=== PATIENT | female | born 1955 | race Caucasian/White ===

== ENCOUNTER → 2018-03-17 10:35 | Outpatient (CLI) | payer OTHER, SELFPAY ==
--- NOTE | 2018-03-17 | DI.RAD.S_ITS ---
PROCEDURE: XR KNEE LT 3V INDICATIONS: LEFT KNEE PAIN TECHNIQUE: 3 views of the knee were acquired. COMPARISON: None. FINDINGS: Bones: No fractures or dislocations. No suspicious bony lesions. Mild narrowing of the medial femoral tibial and tricompartmental periarticular osteophyte formation Soft tissues: No joint effusion. No suspicious soft tissue calcifications. IMPRESSION: Mild knee joint degeneration, most notably involving the medial femorotibial joint. Dictated by: Farooq Mann [facility] Interpreted: Maurizio Sifuentes MD on 03/17/2018 at 11:23 Approved by: Maurizio Sifuentes M.D. on 03/17/2018 at 12:22
== END ==
PROVIDERS: Family Provider Family Medicine; PCP Family Medicine; Visit Provider Chiropractor
DX: M17.12 Unilateral primary osteoarthritis, left knee (principal)
CPT/HCPCS: 73562

== ENCOUNTER → 2018-05-01 12:46 | Outpatient (CLI) | payer OTHER, SELFPAY ==
--- NOTE | 2018-05-01 | DI.MG.S_ITS ---
BILATERAL DIGITAL SCREENING MAMMOGRAM 3D/2D WITH CAD: 05/01/2018 CLINICAL: Routine screening. Comparison is made to exams dated: 02/17/2016 mammogram, 07/17/2014 mammogram, and 09/11/2012 mammogram - [facility]. The tissue of both breasts is heterogeneously dense. This may lower the sensitivity of mammography. Current study was also evaluated with a Computer Aided Detection (CAD) system. No significant masses, calcifications, or other findings are seen in either breast. There has been no significant interval change. IMPRESSION: NEGATIVE There is no mammographic evidence of malignancy. A 1 year screening mammogram is recommended. This exam was interpreted at Station ID: [id number]. NOTE: For mammograms, a report in lay terms will be sent to the patient. Approximately 15% of breast malignancies will not be visualized mammographically. In the management of a palpable breast mass, a negative mammogram must not discourage biopsy of a clinically suspicious lesion. Electronically Signed By: Erick elizondo/gabi:05/01/2018 17:31:07 copy to: Lc Renae letter sent: Normal Exam ACR BI-RADS Category 1: Negative 3341F
== END ==
PROVIDERS: PCP Family Medicine; Visit Provider Family Medicine
DX: Z12.31 Encounter for screening mammogram for malignant neoplasm of breast (principal)
CPT/HCPCS: 77063; 77067

== ENCOUNTER 2019-12-27 23:36 | Emergency (ER) | payer OTHER, MEDICARE, SELFPAY ==
--- NOTE | 2019-12-27 23:45 | ED_ITS ---
HPI - General Adult General Chief complaint: Chest Pain Stated complaint: heart event Time Seen by Provider: 12/27/19 23:38 Source: patient Mode of arrival: Ambulatory Limitations: no limitations History of Present Illness HPI narrative: Patient is a 64-year-old female with no prior cardiac history here for evaluation of which she states was a ?heart event ?that occurred at about 1830 hours this evening. She states that at the time she was laying on her couch watching something on her computer when she had a sudden onset of what she states was fairly sharp retrosternal chest discomfort. She was unsure as to how long the symptoms lasted but she thinks it was less than 30 minutes. Not worse with palpation or movement. She does think that it radiated up into the right side of her neck. It resolved on its own. She does have a history of high blood pressure. Her took her blood pressure and it was slightly high. She contacted the paramedics on the [place] where she lives where they did an EKG and advised her to come to the emergency department. With the time she arrived to the emergency department she has been and is symptom free. Related Data Home Medications Medication Instructions Recorded Confirmed CA PANTOTHENATE/FOLIC ACID/VIT #0 10/13/12 06/12/18 (MULTIVITAMIN) LACTOBACILLUS ACIDOPH (Bacid) #0 10/13/12 06/12/18 losartan 25 mg tablet 25 mg PO DAILY 05/01/18 12/28/19 Allergies Allergy/AdvReac Type Severity Reaction Status Date / Time latex [LATEX] AdvReac Unknown Verified 12/28/19 00:09 Review of Systems Constitutional Constitutional: Denies fever(s) Cardiovascular Cardiovascular: Reports chest pain, Denies syncope, Denies rapid heart rate, Denies leg edema, Denies lightheadedness, Denies dyspnea and Denies dyspnea on exertion Respiratory Respiratory: Denies cough, Denies dyspnea and Denies dyspnea on exertion Gastrointestinal Gastrointestinal: Denies abdominal pain, Denies nausea and Denies vomiting Genitourinary Genitourinary: Denies dysuria Genitourinary: Denies dysuria Musculoskeletal Musculoskeletal: Denies arthralgias and Denies myalgias Integumentary/Breasts Skin/Breast: Denies rash Neurologic Neurologic: Denies behavioral changes and Denies syncope Psychiatric Psychiatric: Denies behavioral changes Hematologic/Lymphatic Hematologic/Lymphatic: Denies easy bleeding and Denies easy bruising Allergic/Immunologic Allergic/Immunologic: Denies urticaria Patient History Medical History Hypertension (Acute) Surgical History Status post laparoscopy (10/13/12) Social History Smoking Status: Never smoker Smoking Status: Never smoker Exam Initial Vital Signs Initial Vital Signs: Vital Signs Temperature 97.6 F 12/27/19 23:48 Pulse Rate 63 12/27/19 23:48 Respiratory Rate 14 12/27/19 23:48 Blood Pressure 201/104 H 12/27/19 23:48 Pulse Oximetry 97 12/27/19 23:48 Const General: cooperative and comfortable Limitations: mental status not altered HENMT Head: normal to inspection and normocephalic Resp Effort & Inspection: normal respiratory effort Auscultation: clear to auscultation bilaterally Cardio Rate: regular rate Rhythm: regular rhythm Pulses: radial pulses present GI Inspection: non-distended Palpation: soft Skin Lesions: no lesions Rashes: no rashes Neuro General: patient alert and patient awake Cognition: normal cognition Speech: speech normal Gait: normal gait Extrem General: normal to inspection and capillary refill normal Psych Appearance: grossly normal and well kempt Scores GCS Alexander coma scale eye opening: Spontaneous Alexander coma scale verbal response: Orientated Alexander coma scale motor response: Obey commands Alexander coma scale total score: 15 HEART Score Heart Score history: Slightly Suspicious Heart Score EKG: Non-Specific repolarization disturbance Heart Score Age: > or = 65 years old Heart Score risk factors: 1-2 risk factors Heart Score troponin: < or = to normal limit Heart Score Total: 4 Course Orders Ordered: ED Orders 12/27/19 23:47 XR chest 1V Stat EKG-12 Lead Stat 12/27/19 23:50 Complete Blood Count AUTO DIFF Stat Comprehensive Metabolic Panel Stat Lipase Stat Troponin & CK Cardiac Panel Stat 12/28/19 02:00 Troponin I Stat Discontinued Medications Aspirin (Aspirin Chew) 324 mg PO NOW ONE Stop: 12/27/19 23:48 Last Admin: 12/27/19 23:55 Dose: 324 mg Documented by: RMARTIN Losartan Potassium (Cozaar) 25 mg PO NOW ONE Stop: 12/28/19 00:35 Last Admin: 12/28/19 00:51 Dose: 25 mg Documented by: RUFINO Vital Signs Vital signs: Vital Signs - 8 hr 12/27/19 23:48 12/28/19 00:00 12/28/19 00:30 Temperature 97.6 F Pulse Rate 63 60 61 Respiratory Rate 14 14 13 Blood Pressure 201/104 H Pulse Oximetry 97 97 97 12/28/19 00:49 12/28/19 01:00 12/28/19 01:30 Temperature Pulse Rate 69 61 Respiratory Rate 19 14 Blood Pressure 161/66 H 149/86 H 130/60 Pulse Oximetry 96 96 12/28/19 02:00 12/28/19 02:30 Temperature Pulse Rate 67 64 Respiratory Rate 23 14 Blood Pressure 150/75 H 143/63 H Pulse Oximetry 97 94 Medical Decision Making Lab Data Lab results reviewed: Yes I reviewed the patient's lab results. Result diagrams: 12/27/19 23:50 12/27/19 23:50 Labs: Lab Results 12/27/19 12/27/19 12/27/19 Range/Units 23:50 23:50 23:50 WBC 9.4 (4.5-11.0) X10^3/uL RBC 4.72 (4.0-5.2) X10^6/uL Hgb 13.7 (12.0-16.0) g/dL Hct 40.3 (36-46) % MCV 85.3 (80-100) fL MCH 29.0 (26-34) PG MCHC 33.9 (30-36) % RDW 13.8 (11.6-14.8) % Plt Count 250 (150-400) X10^3/uL Neut % (Auto) 57.8 (50-75) % Lymph % (Auto) 31.9 (25-40) % [place] % (Auto) 6.8 (3-14) % Eos % (Auto) 2.7 (2-4) % Baso % (Auto) 0.8 (0-2) % Neut # (Auto) 5400 (4941-0153) /uL Lymph # (Auto) 3000 (5259-2246) /uL [place] # (Auto) 600 (0-900) /uL Eos # (Auto) 300 (0-450) /uL Baso # (Auto) 100 (0-100) /uL Sodium 140 (137-145) mmol/L Potassium 3.6 (3.4-5.1) mmol/L Chloride 102 (98-107) mmol/L Carbon Dioxide 31 (22-32) mmol/L BUN 13 (7-17) mg/dL Creatinine 0.55 (0.52-1.04) mg/dL Estimated GFR > 60.0 (>60) mL/min BUN/Creatinine Ratio 23.6 H (6-22) Glucose 98 (80-110) mg/dL Calcium 9.4 (8.4-10.2) mg/dL Total Bilirubin 0.4 (0.2-1.3) mg/dL AST 38 H (14-36) IU/L ALT 24 (<35) IU/L Alkaline Phosphatase 44 (38-126) U/L Total Creatine Kinase 64 (30-135) U/L CK-MB (CK-2) TNP CK-MB (CK-2) Rel Index TNP Troponin I < 0.012 (0.01-0.034) ng/mL Total Protein 7.3 (6.3-8.2) g/dL Albumin 4.4 (3.5-5.0) g/dL Globulin 2.9 (1.7-4.1) g/dL Albumin/Globulin Ratio 1.5 (1.0-2.8) Lipase 67 (23-300) U/L 12/28/19 Range/Units 02:00 WBC (4.5-11.0) X10^3/uL RBC (4.0-5.2) X10^6/uL Hgb (12.0-16.0) g/dL Hct (36-46) % MCV (80-100) fL MCH (26-34) PG MCHC (30-36) % RDW (11.6-14.8) % Plt Count (150-400) X10^3/uL Neut % (Auto) (50-75) % Lymph % (Auto) (25-40) % [place] % (Auto) (3-14) % Eos % (Auto) (2-4) % Baso % (Auto) (0-2) % Neut # (Auto) (4722-1687) /uL Lymph # (Auto) (0298-1562) /uL [place] # (Auto) (0-900) /uL Eos # (Auto) (0-450) /uL Baso # (Auto) (0-100) /uL Sodium (137-145) mmol/L Potassium (3.4-5.1) mmol/L Chloride (98-107) mmol/L Carbon Dioxide (22-32) mmol/L BUN (7-17) mg/dL Creatinine (0.52-1.04) mg/dL Estimated GFR (>60) mL/min BUN/Creatinine Ratio (6-22) Glucose (80-110) mg/dL Calcium (8.4-10.2) mg/dL Total Bilirubin (0.2-1.3) mg/dL AST (14-36) IU/L ALT (<35) IU/L Alkaline Phosphatase (38-126) U/L Total Creatine Kinase (30-135) U/L CK-MB (CK-2) CK-MB (CK-2) Rel Index Troponin I < 0.012 (0.01-0.034) ng/mL Total Protein (6.3-8.2) g/dL Albumin (3.5-5.0) g/dL Globulin (1.7-4.1) g/dL Albumin/Globulin Ratio (1.0-2.8) Lipase (23-300) U/L Imaging Data Chest x-ray: Attestation: I personally reviewed and interpreted this imaging study as follows: My Impression: No pneumonia, no acute pathology ECG Data Attestation: I personally reviewed and interpreted this ECG as follows: Prior ECG tracings: not available for review Interpretation: Sinus rhythm Sinus arrhythmia Ventricular rate is 65 Normal axis Normal QRS Normal QTC One PVC One Pac Nonspecific ST T wave changes MDM Narrative Medical decision making narrative: Review of the E[place] shows frequent PACs and PVCs. This was consistent with her EKG here in this emergency department. Her chest x-ray is negative. Troponins are negative x2 with the 2nd being greater than 6 hours after the onset of her symptoms. Her symptoms are not consistent with ACS. It was a sharp discomfort that lasted a few minutes. She does have known gallbladder disease with cholelithiasis based on an ultrasound a couple years ago. The location of her symptoms was initially described as retrosternal however when I evaluated the patient and talk with her she pointed more in the epigastric region. Her LFTs lipase unremarkable. I feel we can hold on an ultrasound for now. Will discharge the patient home and have her contact her primary doctor for follow-up to discuss further provocative testing. She was given return precautions and follow-up instructions. She expressed understanding agreement with plan. Discharge Plan Departure Patient Disposition: Home Clinical Impression: Atypical chest pain Discharge Date/Time: 12/28/19 02:59 Instructions: DI for Atypical Chest Pain Activity Restrictions/Additional Instructions: I recommend that you contact her primary provider for follow-up and to discuss potential further workup of your heart to include a referral to see Cardiology and/or a stress test. You can also talk with your primary provider to discuss indications for a referral to see General surgery to have her gallbladder removed. Return to the emergency department for any new or worsening symptoms Prescriptions: No Action CA PANTOTHENATE/FOLIC ACID/VIT (MULTIVITAMIN) Qty: 0 RF: 0 LACTOBACILLUS ACIDOPH (Bacid) Qty: 0 RF: 0 losartan 25 mg tablet 25 mg PO DAILY RF: 0 Referrals: Kira Willoughby MD [Primary Care Provider] -
--- NOTE | 2019-12-27 23:47 | DI.RAD.S_ITS ---
PROCEDURE: XR CHEST 1V INDICATIONS: Chest pain TECHNIQUE: One view of the chest was acquired. COMPARISON: [facility], , CHEST 1 VIEW, 12/10/2010, 20:06. FINDINGS: Surgical changes and devices: None. Lungs and pleura: Chronic interstitial changes are present. Mild appearance of increased vascularity. No pleural effusions or pneumothorax. Mediastinum: Mediastinal contours appear normal. Heart size is normal. Bones and chest wall: No suspicious bony lesions. Overlying soft tissues appear unremarkable. IMPRESSION: Chronic interstitial changes. Mild appearance of increased vascularity suggestive of edema. Dictated by: Ela Hayes M.D. on 12/28/2019 at 9:43 Approved by: Ela Hayes M.D. on 12/28/2019 at 9:45
[2019-12-27 23:48] VITALS: BP 201/104; PULSE 63; RESP 14; TEMP 36.4; O2SAT 97; BMI 25.8
[2019-12-27] MEDS: ASPIRIN 81 MG CHEW TAB 324 MG PO (23:55)
[2019-12-27 23:57] LABS: Add Manual Diff / Slide Review NO; Basophils Absolute Auto 100 /uL (0-100); Basophils Percent Auto 0.8 % (0-2); Eosinophils Absolute Auto 300 /uL (0-450); Eosinophils Percent Auto 2.7 % (2-4); Hematocrit 40.3 % (36-46); Hemoglobin 13.7 g/dL (12.0-16.0); Lymphocytes Absolute Auto 3000 /uL (1100-4500); Lymphocytes Percent Auto 31.9 % (25-40); Mean Corpuscular HGB Conc 33.9 % (30-36); Mean Corpuscular Volume 85.3 fL (80-100); Monocytes Absolute Auto 600 /uL (0-900); Monocytes Percent Auto 6.8 % (3-14); Neutrophils Absolute Auto 5400 /uL (1500-7000); Neutrophils Percent Auto 57.8 % (50-75); Platelet Count 250 X10^3/uL (150-400); Red Blood Cell Count 4.72 X10^6/uL (4.0-5.2); Red Cell Distribution Width 13.8 % (11.6-14.8); White Blood Cell Count 9.4 X10^3/uL (4.5-11.0)
[2019-12-28] VITALS (7 sets, daily range): BP systolic 130–161; BP diastolic 60–86; PULSE 60–69; RESP 13–23; O2SAT 94–97
[2019-12-28 00:05] LABS: Creatine Kinase 64 U/L (30-135)
[2019-12-28 00:06] LABS: Alanine Aminotransferase 24 IU/L (<35); Albumin 4.4 g/dL (3.5-5.0); Albumin Globulin Ratio 1.5 (1.0-2.8); Alkaline Phosphatase 44 U/L (38-126); Aspartate Aminotransferase 38 IU/L (14-36); BUN Creatinine Ratio 23.6 (6-22); Bilirubin Total 0.4 mg/dL (0.2-1.3); Blood Urea Nitrogen 13 mg/dL (7-17); Calcium 9.4 mg/dL (8.4-10.2); Carbon Dioxide 31 mmol/L (22-32); Chloride 102 mmol/L (98-107); Estimated Glomerular Filt Rate > 60.0 mL/min (>60); Globulin 2.9 g/dL (1.7-4.1); Glucose 98 mg/dL (80-110); HEMOLYSIS 45 (0-50); Lipase 67 U/L (23-300); Potassium 3.6 mmol/L (3.4-5.1); Sodium 140 mmol/L (137-145); Total Protein 7.3 g/dL (6.3-8.2)
[2019-12-28 00:18] LABS: Troponin I < 0.012 ng/mL (0.01-0.034)
[2019-12-28] MEDS: LOSARTAN 25 MG TABLET PO (00:51)
[2019-12-28 02:30] LABS: Troponin I < 0.012 ng/mL (0.01-0.034)
== END 2019-12-28 02:59 | disposition home or self-care (01) ==
PROVIDERS: Emergency Provider Emergency Medicine; PCP Family Medicine
DX: R07.89 Other chest pain (principal); I10 Essential (primary) hypertension
CPT/HCPCS: 36415; 71045; 80053; 82550; 82553; 83690; 84484; 85025; 93005; 93010; 99284

== ENCOUNTER → 2020-09-19 09:06 | Outpatient (CLI) | payer OTHER, MEDICARE, SELFPAY ==
--- NOTE | 2020-09-19 09:09 | DI.US.S_ITS ---
PROCEDURE: US PELVIC COMPLETE INDICATIONS: PELVIC FULLNESS AND HX OF OVARIAN CYSTS TECHNIQUE: Real-time scanning was performed of the pelvic organs, with image documentation. Additional endovaginal scanning was necessary due to incomplete visualization of the adnexal and endometrial structures by transabdominal scanning. COMPARISON: [facility], US, PELVIC COMPLETE, 02/17/2016, 10:23. [facility], , PELVIC COMPLETE, 09/11/2012, 12:09. FINDINGS: Uterus: Uterus is anteverted and normal in size at 2.5 x 4.7 x 6.3 cm. The endometrium measures 2.3 mm in combined thickness. Ovaries: Right ovary measures 3.0 x 3.4 x 2.4 cm, and contains a 1.8 x 1 point by 1.4 cm cyst. The left ovary is surgically absent according to the patient. Other: No pathologic free abdominal or pelvic fluid. IMPRESSION: Anteverted uterus, normal in size without fibroids. Endometrial lining is normal in thickness at 2.3 mm. Absent left ovary, small cyst within the normal right ovary. Dictated by: Carmelo Robles M.D. on 09/19/2020 at 15:30 Approved by: Carmelo Robles M.D. on 09/19/2020 at 15:34
[2020-09-19 10:09] LABS: Add Manual Diff / Slide Review NO; Basophils Absolute Auto 0 /uL (0-100); Basophils Percent Auto 0.4 % (0-2); Eosinophils Absolute Auto 100 /uL (0-450); Eosinophils Percent Auto 1.6 % (2-4); Hematocrit 41.9 % (36-46); Lymphocytes Absolute Auto 1800 /uL (1100-4500); Lymphocytes Percent Auto 26.7 % (25-40); Mean Corpuscular HGB Conc 33.4 % (30-36); Mean Corpuscular Hemoglobin 28.4 PG (26-34); Monocytes Absolute Auto 500 /uL (0-900); Neutrophils Absolute Auto 4400 /uL (1500-7000); Neutrophils Percent Auto 63.3 % (50-75); Platelet Count 201 X10^3/uL (150-400); Red Blood Cell Count 4.93 X10^6/uL (4.0-5.2); Red Cell Distribution Width 13.4 % (11.6-14.8); White Blood Cell Count 6.9 X10^3/uL (4.5-11.0)
[2020-09-19 10:24] LABS: Alanine Aminotransferase 20 IU/L (<35); Albumin 4.4 g/dL (3.5-5.0); Albumin Globulin Ratio 1.7 (1.0-2.8); Alkaline Phosphatase 60 U/L (38-126); Aspartate Aminotransferase 26 IU/L (14-36); BUN Creatinine Ratio 28.9 (6-22); Bilirubin Total 0.4 mg/dL (0.2-1.3); Blood Urea Nitrogen 13 mg/dL (7-17); Calcium 9.9 mg/dL (8.4-10.2); Carbon Dioxide 28 mmol/L (22-32); Chloride 103 mmol/L (98-107); Cholesterol 179 mg/dL (140-199); Estimated Glomerular Filt Rate > 60.0 mL/min (>60); Globulin 2.6 g/dL (1.7-4.1); Glucose 83 mg/dL (80-110); HDL Cholesterol 57 mg/dL (40-60); HEMOLYSIS < 15 (0-50); LDL Cholesterol Calculated 108 mg/dL (<100); Potassium 3.9 mmol/L (3.4-5.1); Sodium 140 mmol/L (137-145); Triglycerides 69 mg/dL (35-150)
[2020-09-19 11:10] LABS: TSH w/ Reflex to FT4 2.63 uIU/mL (0.47-4.68)
== END ==
PROVIDERS: PCP Family Medicine; Referring Provider Obstetrics & Gynecology; Visit Provider Obstetrics & Gynecology
DX: R19.00 Intra-abdominal and pelvic swelling, mass and lump, unspecified site (principal); Z87.42 Personal history of other diseases of the female genital tract; I10 Essential (primary) hypertension; Z13.220 Encounter for screening for lipoid disorders; Z13.228 Encounter for screening for other metabolic disorders; Z13.29 Encounter for screening for other suspected endocrine disorder; Z76.89 Persons encountering health services in other specified circumstances
CPT/HCPCS: 36415; 76830; 76856; 80053; 80061; 84443; 85025

== ENCOUNTER → 2021-02-27 08:25 | Outpatient (CLI) | payer MEDICARE, SELFPAY ==
[2021-02-27 21:05] LABS: COVID19 - ORCAS (NP or Nasal) Negative (Negative)
== END ==
PROVIDERS: PCP Family Medicine; Visit Provider Physician Assistant Medical
DX: U07.1 COVID-19 (principal)
CPT/HCPCS: C9803; U0003

== ENCOUNTER → 2021-12-29 09:27 | Outpatient (CLI) | payer MEDICARE, SELFPAY ==
[2021-12-29 20:29] LABS: Alanine Aminotransferase 19 IU/L (<35); Albumin 4.1 g/dL (3.5-5.0); Albumin Globulin Ratio 1.6 (1.0-2.8); Alkaline Phosphatase 58 U/L (38-126); Aspartate Aminotransferase 28 IU/L (14-36); BUN Creatinine Ratio 26.5 (6-22); Bilirubin Total 0.7 mg/dL (0.2-1.3); Blood Urea Nitrogen 13 mg/dL (7-17); Calcium 9.2 mg/dL (8.4-10.2); Carbon Dioxide 28 mmol/L (22-32); Chloride 104 mmol/L (98-107); Estimated Glomerular Filt Rate > 60 mL/min (>60); Globulin 2.5 g/dL (1.7-4.1); Glucose 97 mg/dL (80-110); HEMOLYSIS < 15 (0-50); Potassium 4.1 mmol/L (3.4-5.1); Sodium 138 mmol/L (137-145); Total Protein 6.6 g/dL (6.3-8.2)
[2021-12-29 20:57] LABS: TSH w/ Reflex to FT4 2.37 uIU/mL (0.47-4.68)
== END ==
PROVIDERS: PCP Family Medicine; Visit Provider Family Medicine
DX: I10 Essential (primary) hypertension (principal); R91.8 Other nonspecific abnormal finding of lung field; Z00.00 Encounter for general adult medical examination without abnormal findings
CPT/HCPCS: 80053; 84443

== ENCOUNTER → 2022-01-06 12:18 | Outpatient (CLI) | payer MEDICARE, SELFPAY ==
--- NOTE | 2022-01-06 | DI.MG.S_ITS ---
BILATERAL DIGITAL SCREENING MAMMOGRAM 3D/2D WITH CAD: 01/06/2022 CLINICAL: Routine screening. Comparison is made to exams dated: 05/01/2018 mammogram, 02/17/2016 mammogram, and 07/17/2014 mammogram - [facility]. Both breasts are heterogeneously dense, which may obscure small masses (category c / 51-75% glandular tissue). Current study was also evaluated with a Computer Aided Detection (CAD) system. No significant masses, calcifications, or other findings are seen in either breast. There has been no significant interval change. IMPRESSION: NEGATIVE There is no mammographic evidence of malignancy. A 1 year screening mammogram is recommended. Based on the Tyrer Cuzick model (a risk assessment model) the patient's lifetime risk is 11.0% and her 10 year risk is 6.2%. According to the ACR, ACS, and NCCN guidelines, an annual breast MRI exam along with mammogram is recommended if the patient's lifetime risk is 20% or greater. This exam was interpreted at Station ID: [id number]. NOTE: For mammograms, a report in lay terms will be sent to the patient. Approximately 15% of breast malignancies will not be visualized mammographically. In the management of a palpable breast mass, a negative mammogram must not discourage biopsy of a clinically suspicious lesion. Electronically Signed By: Cleve morrow/gabi:01/06/2022 17:22:52 copy to: Ludivina Epstein letter sent: Normal Exam ACR BI-RADS Category 1: Negative 3341F
--- NOTE | 2022-01-06 12:20 | DI.CT.S_ITS ---
PROCEDURE: CT CHEST WO CON INDICATIONS: Follow-up incidental lung nodule found 5 years ago TECHNIQUE: Noncontrast 2.0-2.5 mm thick sections acquired from the pulmonary apices to the posterior costophrenic angles. 7 mm thick axial MIP and 5 mm coronal and sagittal reformats were then acquired. A low radiation dose technique was utilized. COMPARISON: [facility], RG, CT THORAX W/O CONTRAST, 02/07/2018, 11:49. FINDINGS: Image quality: Diagnostic, given the low radiation dose technique. Lungs and pleura: There is a 5 mm ground-glass nodule within the right upper lobe which is unchanged from the study dated February 07, 2018. A 7 mm pulmonary nodule along the pleural aspect of the left lower lobe is unchanged from 2018. 2 inter fissural nodules within the right oblique fissure are also unchanged from 2018. No new pulmonary nodules. No acute airspace opacities. No pleural effusion or pneumothorax. Mediastinum: Heart size is normal. No pericardial effusion. No mediastinal adenopathy by size criteria. Thoracic aorta and central pulmonary arteries are normal in size. Esophagus is normal in caliber. No hiatal hernia. Bones and chest wall: No suspicious bony lesions. No vertebral body compression fractures. No axillary or supraclavicular adenopathy by size criteria. Thyroid gland is unremarkable . Abdomen: Visualized upper abdomen solid organs and bowel loops appear normal in the absence of contrast. IMPRESSION: 1. Multiple stable subcentimeter pulmonary nodules when compared with the CT from 2018. No new pulmonary nodules or suspicious pulmonary lesions. No further follow-up recommended for these pulmonary nodules. Fleischner Society criteria for SOLID lung nodule followup. Nodule size (mm)Low-risk patientHigh-risk patient<6 (single or multiple)No routine followup.Optional CT at 12 months. 6-8 (single or multiple)CT at 6-12 months, then optional CT at 18-24 mo.CT at 6-12 months, then CT at 18-24 months. >8 (single)CT at 3 months, PET-CT, or biopsy. Same as for low-risk pts. >8 (multiple)CT at 3-6 months, then optional CT at 18-24 mo.CT at 3-6 months, then CT at 18-24 months. Fleischner Society criteria for SUB-SOLID lung nodule followup. Solitary pure ground-glass nodules<6 mm (ground glass or part solid)No followup needed. 6 mm or larger (ground glass)CT at 6-12 months to confirm persistence, then CT every 2 years until 5 years.6 mm or larger (part solid)CT at 3-6 months to confirm persistence, then annual CT until 5 years if unchanged and solid component remains <6 mm. Multiple sub-solid nodules<6 mmCT at 3-6 months, then CT consider at 2 & 4 years for high risk patients. [address] at 3-6 months. Subsequent management based on most suspicious lesions. Recommendations do not apply to lung cancer screening, patients with immunosuppression, or patients with known primary cancer. Dictated by: Kaela Doshi M.D. on 01/06/2022 at 16:56 Approved by: Kaela Doshi M.D. on 01/06/2022 at 17:00
== END ==
PROVIDERS: PCP Family Medicine; Referring Provider Family Medicine; Visit Provider Family Medicine
DX: Z12.31 Encounter for screening mammogram for malignant neoplasm of breast (principal); R91.8 Other nonspecific abnormal finding of lung field
CPT/HCPCS: 71250; 77063; 77067